=== PATIENT | male | born 1980 | race Caucasian/White ===

== ENCOUNTER 2016-10-06 06:05 | Day surgery (SDC) | payer OTHER ==
[2016-10-02 15:01] LABS: Urine RBC None Seen /hpf (0 - 3)
[2016-10-02 15:12] LABS: Basophils # (auto) 0.1 uL; Basophils % (auto) 0.7 % (0.0-2.0); Eosinophils # (auto) 0.2 uL; Eosinophils % (auto) 2.2 % (0.0-7.0); Hematocrit 51.3 % (41.0-53.0); Hemoglobin 16.8 g/dL (13.5-17.5); Lymphocytes # (auto) 2.3 uL; Lymphocytes % (auto) 27.4 % (10.0-50.0); Mean Corpuscular Hemoglobin 28.2 pg (28.0-32.0); Mean Corpuscular Hgb Conc. 32.8 g/dL (32.0-36.0); Mean Corpuscular Volume 85.8 fL (80.0-100.0); Mean Platelet Volume 8.9 fL (7.4-10.4); Monocytes # (auto) 0.6 uL; Monocytes % (auto) 6.8 % (0.0-12.0); Neutrophils # (auto) 5.3 uL; Neutrophils % (auto) 62.9 % (37.0-80.0); Platelet Count (auto) 250 10^3/uL (140-450); White Blood Cell 8.5 10^3/uL (4.4-10.8)
[2016-10-02 15:28] LABS: Urine Bilirubin Negative (Negative); Urine Blood Negative /uL (Negative); Urine Ca Oxalate Crystal FEW (None Seen); Urine Color Yellow (Yellow); Urine Glucose Normal (Normal); Urine Ketone Negative (Negative); Urine Nitrite Negative (Negative); Urine Urobilinogen Normal (Negative); Urine pH 5.5 (5.0-8.0)
[2016-10-02 15:33] LABS: BUN/Creatinine Ratio 19.2; Calcium 8.5 mg/dL (8.5-10.1); Potassium 4.1 mmol/L (3.5-5.1)
[2016-10-02 15:39] LABS: INR 0.96 (0.9-1.15); Partial Thromboplastin Time 25.9 sec (22.64-33.71); Prothrombin Time 10.5 sec (9.37-12.3)
[~2016-10-06] VITALS: Ht 188 cm; Wt 95.3 kg
[2016-10-06] MEDS ORDERED: ceFAZolin 1GM/50ML D5W 50 ML IV ONE (06:41)
[2016-10-06] MEDS ORDERED: ROCURONIUM 10MG/ML 10ML VIAL IV ONE (06:53)
[2016-10-06] MEDS ORDERED: LIDOCAINE 1% HCL (LOCAL ANESTH.) INJ 20ML MDV ONE (06:53)
[2016-10-06] MEDS ORDERED: fentaNYL CITRATE 100 MCG/2 ML VL ONE (07:22)
[2016-10-06] MEDS ORDERED: MIDAZOLAM HCL 1MG/1ML-2 ML VIAL ONE (07:22)
[2016-10-06] MEDS ORDERED: PROPOFOL 10 MG/ML 20 ML IV ONE (07:22)
[2016-10-06] MEDS ORDERED: HYDROCORTISONE SOD SUCC 100 MG/2ML INJ VIAL ONE (07:47)
[2016-10-06] MEDS ORDERED: ONDANSETRON HCL 4 MG/2 ML VIAL IV ONE (08:30)
[2016-10-06] MEDS ORDERED: ePHEDrine SULFATE 50 MG/ML AMP IV PRN (08:30)
[2016-10-06] MEDS ORDERED: hydrALAZINE HCL 20 MG/ML VL IV PRN (08:30)
[2016-10-06] MEDS ORDERED: fentaNYL CITRATE 100 MCG/2 ML VL IV ONE (09:00)
[2016-10-06 09:15] VITALS: BP 135/78
== END 2016-10-06 09:15 | disposition home health service (06) ==
LOC: SUR 06:05
PROVIDERS: ATTEND Urology
DX: L72.8 Other follicular cysts of the skin and subcutaneous tissue (principal); N50.3 Cyst of epididymis; Z98.52 Vasectomy status
CPT/HCPCS: 36415; 54840; 80048; 81001; 85025; 85610; 85730; 87086; 88304; J0690; J1720; J2001; J2250; J2704; J3010